=== PATIENT | male | born 1985 | race Caucasian/White ===

== ENCOUNTER 2018-04-03 05:25 | Emergency (ER) | payer SELFPAY ==
[2018-04-03] MEDS ORDERED: Ondansetron HCl/PF 4 MG/2 ML Vial ONE ×2 (05:49→06:37)
[2018-04-03] MEDS ORDERED: Morphine 4 MG/ML Carpuject ONE (05:57)
[2018-04-03 06:01] LABS: ALT (SGPT) 17 U/L (8-55); AST (SGOT) 27 U/L (5-34); Albumin 5.4 g/dL (3.5-5.0); Alkaline Phosphatase 96 U/L (40-150); Anion Gap 25 mmol/L (10-20); BUN (Urea Nitrogen) 19 mg/dL (8.9-20.6); Bilirubin, Total 2.8 mg/dL (0.2-1.2); Calc. Creatinine Clearance 0 mL/min (70-130); Calcium 10.9 mg/dL (7.8-10.44); Carbon Dioxide 22 mmol/L (22-29); Chloride 93 mmol/L (98-107); Estimated GFR-MDRD Greater than 90; Globulin 3.6 g/dL (2.4-3.5); Glucose 98 mg/dL (70-105); Lipase 15 U/L (8-78); Potassium 4.4 mmol/L (3.5-5.1); Sodium 136 mmol/L (136-145)
[2018-04-03 06:08] LABS: #Basophils 0.1 thou/uL (0.0-0.2); #Monocytes 0.3 thou/uL (0.11-0.59); #Neutrophils 11.9 thou/uL (1.40-6.50); %Basophils 0.7 % (0.0-1.0); %Eosinophils 0.2 % (0.0-10.0); %Lymphocytes 14.1 % (21.0-51.0); %Monocytes 2.2 % (0.0-10.0); %Neutrophils 82.9 % (42.0-75.0); Hemoglobin 19.6 g/dL (14.0-18.0); Mean Corpuscular Hemoglobin 31.6 pg (27.0-31.0); Mean Corpuscular Volume 87.6 fL (78.0-98.0); Mean Platelet Volume 6.9 fL (7.4-10.4); Platelet Count 289 thou/uL (130-400); RBC Distribution Width 10.6 % (11.5-14.5); White Blood Cell (WBC) Count 14.4 thou/uL (4.8-10.8)
[2018-04-03 06:18] LABS: Acetaminophen Less than 6.0 mcg/mL (10.0-30.0); Alcohol Less than 10 mg/dL (Less than 10); Salicylate Less than 8.0 mg/dL (15.0-30.0)
[2018-04-03] MEDS ORDERED: Promethazine HCl 25 MG/ML VIAL ONE (07:51)
[2018-04-03] MEDS ORDERED: Pantoprazole 40 MG VIAL ONE (07:51)
[2018-04-03 08:23] LABS: Bilirubin Small (Negative); Blood, Urine Negative (Negative); Clarity Clear (Clear); Glucose, Urine (Dipstick) Negative (Negative); Leukocyte Negative (Negative); Nitrite Negative (Negative); Protein, Urine (Dipstick) 30 mg/dL (Neg-Trace); Specific Gravity, Urine 1.015 (1.005-1.030); Urobilinogen 0.2 mg/dL (0.2-1.0); pH, Urine 5.5 (5.0-9.0)
[2018-04-03 08:27] LABS: Bacteria/HPF None Seen HPF (None Seen); RBC/HPF None Seen HPF (0-3); Squamous Epithelial None Seen HPF (0-3); WBC/HPF None Seen HPF (0-3)
[2018-04-03 08:30] LABS: Cocaine Metabolite Screen Detected (NotDetected); Opiate Screen Detected (NotDetected); THC/Cannabinoid Screen Detected (NotDetected)
[2018-04-03 08:31] LABS: Amphetamine Detected (NotDetected); Barbiturates Screen Not Detected (NotDetected); Benzodiazepine Screen Detected (NotDetected); Medtox Control Line Valid? VALID (VALID); Methadone Not Detected (NotDetected); Methamphetamine Not Detected (NotDetected); Oxycodone Screen Not Detected (NotDetected); Phencyclidine (PCP) Not Detected (NotDetected); Tricyclic Screen Not Detected (NotDetected)
[2018-04-03] MEDS ORDERED: Iopamidol 370 76% 100 ML VIAL ONE (09:00)
--- NOTE | 2018-04-03 10:00 | ULT ---
GALLBLADDER ULTRASOUND: HISTORY: Abdominal pain, elevated bilirubin, and white blood cell count. History of pancreatitis. COMPARISON: CT examination done earlier today. FINDINGS: Real-time imaging of the right upper quadrant shows a normal-appearing gallbladder. The technologist does report a mildly positive ultrasound Cadena's sign. The common duct is 2 mm. Visualized liver parenchyma shows no focal findings. The pancreas and right kidney appear unremarkable. IMPRESSION: No evidence of gallstones. The technologist does report a mildly positive ultrasound Cadena's sign. POS: [facility]
--- NOTE | 2018-04-03 15:21 | CT ---
CT ABDOMEN WITH COTNRAST CT PELVIS WITH CONTRAST: HISTORY: Abdominal pain. Past medical history of pancreatitis. COMPARISON: None. TECHNIQUE: An abdomen and pelvic CT are performed with IV contrast. Coronal reformatted images are submitted fo r interpretation. FINDINGS: ABDOMEN CT: Lung bases are clear. Heart size is normal. No pericardial effusion. The descending thoracic aorta and abdominal aorta have a normal caliber. No periaortic fat stranding. Portal vein is patent. Un remarkable gallbladder. Mild hypoattenuation of the liver due to hepatic steatosis. No abnormal enhancement of the liver, sp kimber, or adrenal glands. Symmetric enhancement of the kidneys. Bilaterally, no obstructive uropathy . Homogeneous enhancement of the pancreas. No evidence of inflammatory change. No gastrohepatic, retrocrural, or periportal lymphadenopathy. No mesenteric mass, lymphadenopathy, free air, or free fluid. Ileocecal junction is unremarkable. Scattered fecal material in a nondistended, nondilated colon. Occasional diverticulum. No diverticu litis. Appendix is difficult to appreciate. Nevertheless, no inflammation of the cecal apex. PELVIC CT: No mass, lymphadenopathy, free air, or free fluid. Unremarkable urinary bladder. No lytic or blastic lesions in the osseous structures. IMPRESSION: No acute abnormality in the abdomen or pelvis. Results of the study discussed with Dr. Padilla 04/03/18 at 7:35 a.m. LIBBY CAMACHO POS: [facility]
== END 2018-04-03 09:14 | disposition home or self-care (01) ==
LOC: SCSER 05:25
DX: E80.6 Other disorders of bilirubin metabolism (principal); D72.829 Elevated white blood cell count, unspecified; F17.210 Nicotine dependence, cigarettes, uncomplicated
CPT/HCPCS: 74177; 76705; 80053; 80306; 80307; 81003; 81015; 83690; 85025; 96361; 96374; 96375; 96376; C9113; J2270; J2405; J2550